=== PATIENT | female | born 1950 | race Two or more races ===

== ENCOUNTER → 2017-01-05 | Outpatient (CLI) | payer OTHER, BC | LOC: BMCIMAGING 08:51 | PROVIDERS: ATTEND Internal Medicine | DX: Z12.31 Encounter for screening mammogram for malignant neoplasm of breast (principal) | CPT/HCPCS: G0202 ==

== ENCOUNTER → 2017-04-02 | Outpatient (CLI) | payer OTHER, BC | LOC: BMCIMAGING 11:13 | PROVIDERS: ATTEND Internal Medicine | DX: R06.09 Other forms of dyspnea (principal) ==

== ENCOUNTER 2017-04-04 19:05 | Emergency (ER) | payer OTHER, BC ==
[2017-04-04] MEDS ORDERED: ASPIRIN 81 MG CHEWABLE TAB PO ONE (19:24)
[2017-04-04] MEDS ORDERED: ASPIRIN 81 MG CHEWABLE TAB ONE (19:25)
[2017-04-04] MEDS ORDERED: LORazepam 2 MG/ML INJ IVP ONE (19:36)
[2017-04-04] MEDS ORDERED: NITROGLYCERIN 0.4 MG BTL SL PRN (19:36)
--- NOTE | 2017-04-04 19:42 | EDPHY ---
H & P Stated Complaint: HTN Time Seen by Provider: 04/04/17 19:31 HPI/ROS: CHIEF COMPLAINT: Chest pain HISTORY OF PRESENT ILLNESS: The patient is a 67-year-old female who comes to the emergency department complaining of chest pain. She has had muscular pain for the last week as well as fatigue. She saw her primary Dr. Yancy Alexander who took her off of her Zocor. They are concerned about interaction between Zocor and lisinopril. This did not improve the patient's symptoms. Today she had an echocardiogram and she does not have the results. Her chest pain began yesterday and she has had occasional chills. No diaphoresis. Nausea but no vomiting. He she also noticed that her blood pressure was high today. She is concerned about this because she has a history of intracranial aneurysm. She is not on any blood thinners. She also endorses having leg cramping a few weeks ago. No traveling. REVIEW OF SYSTEMS: Constitutional: denies: chills, fever, recent illness, recent injury EENTM: denies: blurred vision, double vision, nose congestion Respiratory: denies: cough, shortness of breath Cardiac: See HPI Gastrointestinal/Abdominal: denies: abdominal pain, diarrhea, nausea, vomiting, blood streaked stools Genitourinary: denies: dysuria, frequency, hematuria, pain Musculoskeletal: denies: joint pain, muscle pain Skin: denies: lesions, rash, jaundice, bruising Neurological: denies: headache, numbness, paresthesia, tingling, dizziness, weakness Hematologic/Lymphatic: denies: blood clots, easy bleeding, easy bruising Immunologic/allergic: denies: HIV/AIDS, transplant EXAM: GENERAL: Well-appearing, well-nourished and in mild distress. HEAD: Atraumatic, normocephalic. EYES: Pupils equal round and reactive to light, extraocular movements intact, sclera anicteric, conjunctiva are normal. ENT: TMs normal, nares patent, oropharynx clear without exudates. Moist mucous membranes. NECK: Normal range of motion, supple without lymphadenopathy or JVD. LUNGS: Breath sounds clear to auscultation bilaterally and equal. No wheezes rales or rhonchi. HEART: Regular rate and rhythm without murmurs, rubs or gallops. ABDOMEN: Soft, nontender, normoactive bowel sounds. No guarding, no rebound. No masses appreciated. BACK: No CVA tenderness, no spinal tenderness, step-offs or deformities EXTREMITIES: Normal range of motion, no pitting or edema. No clubbing or cyanosis. NEUROLOGICAL: Cranial nerves II through XII grossly intact. Normal speech, normal gait. 5/5 strength, normal movement in all extremities, normal sensation PSYCH: Normal mood, normal affect. SKIN: Warm, dry, normal turgor, no visible rashes or lesions. Source: Patient Exam Limitations: No limitations - Personal History Current Tetanus/Diphtheria Vaccine: No Current Tetanus Diphtheria and Acellular Pertussis (TDAP): No - Medical/Surgical History Hx Asthma: No Hx Chronic Respiratory Disease: No Hx Diabetes: Yes Hx Cardiac Disease: No Hx Renal Disease: No Hx Cirrhosis: No Hx Alcoholism: No Hx HIV/AIDS: No Hx Splenectomy or Spleen Trauma: No Other PMH: HTN, DM, aneurysm - Social History Smoking Status: Never smoked Alcohol Use: Sober Drug Use: None Constitutional: Initial Vital Signs Temperature (C) 36.8 C 04/04/17 19:15 Heart Rate 101 H 04/04/17 19:15 Respiratory Rate 20 04/04/17 19:15 Blood Pressure 173/92 H 04/04/17 19:15 O2 Sat (%) 98 04/04/17 19:15 O2 Delivery Mode Room Air Allergies/Adverse Reactions: procaine HCl [From Novocain] Allergy (Verified 04/04/17 19:13) zylocaine Allergy (Uncoded 04/04/17 19:13) Home Medications: Medication Instructions Recorded Fenofibrate [Tricor 145 mg (RX)] 0 mg PO DAILY 02/24/13 metFORMIN HCL [Glucophage] 500 mg PO BIDMEAL 02/24/13 CO Q-10 04/04/17 Crestor 04/04/17 Fish Oil 1,200 mg Softgel 04/04/17 Lisinopril 04/04/17 VITAMIN D 04/04/17 Medical Decision Making - Diagnostics EKG Interpretation: An EKG obtained and was read and documented in trace view. Please see trace view for full reading and report. Sinus rhythm, no acute ischemic changes ED Course/Re-evaluation: 8:50 p.m. the patient is feeling much better. Recommended admission to the medical service for continued cardiac rule out. She declines and states that she wants to go home. She states that she feels better. She agree to return if her symptoms worsen or return. We discussed follow-up . Differential Diagnosis: Partial list of the Differential diagnosis considered include but were not limited to; acute coronary disease, anxiety, hypertension and although unlikely based on the history and physical exam, I also considered arrhythmia, PE, infection. I discussed these differential diagnoses and the plan with the patient as well as the usual and expected course. The patient understands that the diagnosis is provisional and that in medicine we are not always correct and that further workup is often warranted. Usual and customary warnings were given. All of the patient's questions were answered. The patient was instructed to return to the emergency department should the symptoms at all worsen or return, otherwise to followup with the physician as we discussed. - Data Points Laboratory Results: Laboratory Results 04/04/17 19:48 04/04/17 19:48 Medications Given: Discontinued Medications Aspirin (Aspirin) 324 mg PO EDNOW ONE Stop: 04/04/17 19:25 Last Admin: 04/04/17 19:43 Dose: 324 mg Ketorolac Tromethamine (Toradol) 15 mg IVP EDNOW ONE Stop: 04/04/17 20:33 Last Admin: 04/04/17 20:37 Dose: 15 mg Lorazepam (Ativan Injection) 0.5 mg IVP EDNOW ONE Stop: 04/04/17 19:37 Last Admin: 04/04/17 19:49 Dose: 0.5 mg Morphine Sulfate (Morphine) 4 mg IVP EDNOW ONE Stop: 04/04/17 19:38 Last Admin: 04/04/17 20:05 Dose: Not Given Departure - Departure Disposition: Home, Routine, Self-Care Clinical Impression: Chest pain Qualifiers: Chest pain type: unspecified Qualified Code(s): R07.9 - Chest pain, unspecified Hypertension Qualifiers: Hypertension type: unspecified Qualified Code(s): I10 - Essential (primary) hypertension Condition: Fair Instructions: Chest Pain (ED), Hypertension (ED) Referrals: Yancy Alexander MD [Primary Care Provider] - As per Instructions
--- NOTE | 2017-04-04 19:55 | CPEKG ---
Heart Rate: 93 RR Interval: 645 P-R Interval: 144 QRSD Interval: 76 QT Interval: 388 QTC Interval: 483 P [place]: 49 QRS [place]: 80 T Wave [place]: 45 EKG Severity - BORDERLINE ECG - EKG Impression: SINUS RHYTHM EKG Impression: BORDERLINE T ABNORMALITIES, ANTERIOR LEADS Electronically Signed By: Tico Jimenez 04-Apr-2017 20:38:49
[2017-04-04 20:04] LABS: % IMMATURE GRANULYOCYTES 0.4 % (0.0-1.1); ABSOLUTE IMMATURE GRANULOCYTES 0.05 10^3/uL (0.00-0.10); ADD DIFF? NO; ADD MORPH? NO; ADD SCAN? NO; ATYPICAL LYMPHOCYTE FLAG 0 (0-99); FRAGMENT RBC FLAG 0 (0-99); HEMATOCRIT 43.1 % (38.0-47.0); HEMOGLOBIN 14.7 g/dL (12.6-16.3); LEFT SHIFT FLG 0 (0-99); LIPEMIA HEMOLYSIS FLAG 90 (0-99); MEAN CELL HEMOGLOBIN 30.6 pg (27.9-34.1); MEAN CELL HEMOGLOBIN CONCENTR. 34.1 g/dL (32.4-36.7); MEAN CELL VOLUME 89.8 fL (81.5-99.8); MEAN PLATELET VOLUME 9.6 fL (8.7-11.7); PLATELET CLUMPS FLAG 0 (0-99); PLATELET COUNT 209 10^3/uL (150-400); RED CELL DISTRIBUTION WIDTH 13.6 % (11.5-15.2)
[2017-04-04 20:15] LABS: ALANINE AMINOTRANSFERASE 50 IU/L (9-52); ALBUMIN 4.5 g/dL (3.5-5.0); ALKALINE PHOSPHATASE 70 IU/L (38-126); ANION GAP 13 mEq/L (8-16); ASPARTATE AMINOTRANSFERASE 28 IU/L (14-46); BILIRUBIN,TOTAL 0.6 mg/dL (0.1-1.4); BILIRUBIN-CONJUGATED 0.3 mg/dL (0.0-0.5); BILIRUBIN-UNCONJUGATED 0.3 mg/dL (0.0-1.1); CARBON DIOXIDE 22 mEq/l (22-31); CHLORIDE 103 mEq/L (97-110); CREATININE 0.7 mg/dL (0.6-1.0); GLOMERULAR FILTRATION RATE > 60; GLUCOSE 121 mg/dL (70-100); POTASSIUM 4.1 mEq/L (3.5-5.2); SODIUM 138 mEq/L (134-144); TOTAL PROTEIN 8.1 g/dL (6.3-8.2)
[2017-04-04 20:24] LABS: INR 1.01 (0.83-1.16); PROTIME(PATIENT) 13.2 SEC (12.0-15.0)
[2017-04-04 20:25] LABS: APTT 24.9 SEC (23.0-38.0); TROPONIN I < 0.012 ng/mL (0.000-0.034)
[2017-04-04] MEDS ORDERED: KETOROLAC 15 MG/1 ML SDV IVP ONE (20:32)
[2017-04-04 21:16] VITALS: BP 135/80; PULSE 87; RESP 16; TEMP 97.9; O2SAT 92
== END 2017-04-04 21:15 | disposition home or self-care (01) ==
DX: R07.9 Chest pain, unspecified (principal); I10 Essential (primary) hypertension; E11.9 Type 2 diabetes mellitus without complications; Z79.01 Long term (current) use of anticoagulants
CPT/HCPCS: 71020; 93005; 96374; 96375; 99285; J1885; J2060

== ENCOUNTER → 2017-05-04 | Outpatient (CLI) | payer OTHER, BC ==
[~2017-05-04] MED LIST: IOPAMIDOL (ISOVUE 370) 100 ML BTL IV ONE
== END ==
LOC: FIMAGING 11:32
PROVIDERS: ATTEND Internal Medicine
DX: I67.1 Cerebral aneurysm, nonruptured (principal)
CPT/HCPCS: 70450; 70496; Q9967

== ENCOUNTER → 2017-05-07 | Outpatient (CLI) | payer OTHER, BC | LOC: BMCIMAGING 11:29 | PROVIDERS: ATTEND Internal Medicine | DX: M06.811 Other specified rheumatoid arthritis, right shoulder (principal); M25.712 Osteophyte, left shoulder ==

== ENCOUNTER 2017-05-24 09:41 | Day surgery (SDC) | payer OTHER, BC ==
[2017-05-24] MEDS ORDERED: FAMOTIDINE 20 MG TAB PO ONE (09:46)
[2017-05-24] MEDS ORDERED: ASPIRIN EC 325 MG TAB PO ONE (09:46)
[2017-05-24] MEDS ORDERED: NS 1,000 ML IV ONE (09:46)
[2017-05-24] MEDS ORDERED: diphenhydrAMINE 25 MG CAP PO ONE (09:46)
[2017-05-24] MEDS ORDERED: DIAZEPAM 5 MG TAB PO ONE (09:46)
--- NOTE | 2017-05-24 10:06 | CPEKG ---
Heart Rate: 75 RR Interval: 800 P-R Interval: 148 QRSD Interval: 74 QT Interval: 428 QTC Interval: 479 P Fred: 57 QRS Fred: 76 T Wave Fred: 63 EKG Severity - BORDERLINE ECG - EKG Impression: SINUS RHYTHM EKG Impression: BORDERLINE T ABNORMALITIES, ANT-LAT LEADS Electronically Signed By: Thai Mayorga 24-May-2017 17:36:13
[2017-05-24 10:18] LABS: % IMMATURE GRANULYOCYTES 0.2 % (0.0-1.1); ABSOLUTE IMMATURE GRANULOCYTES 0.01 10^3/uL (0.00-0.10); ADD DIFF? NO; ADD MORPH? NO; ADD SCAN? NO; ATYPICAL LYMPHOCYTE FLAG 10 (0-99); FRAGMENT RBC FLAG 0 (0-99); HEMATOCRIT 41.3 % (38.0-47.0); HEMOGLOBIN 14.1 g/dL (12.6-16.3); LEFT SHIFT FLG 0 (0-99); LIPEMIA HEMOLYSIS FLAG 90 (0-99); MEAN CELL HEMOGLOBIN 30.9 pg (27.9-34.1); MEAN CELL HEMOGLOBIN CONCENTR. 34.1 g/dL (32.4-36.7); MEAN CELL VOLUME 90.4 fL (81.5-99.8); MEAN PLATELET VOLUME 9.5 fL (8.7-11.7); PLATELET CLUMPS FLAG 10 (0-99); PLATELET COUNT 184 10^3/uL (150-400); RED BLOOD CELL COUNT 4.57 10^6/uL (4.18-5.33); RED CELL DISTRIBUTION WIDTH 13.9 % (11.5-15.2)
[2017-05-24 10:29] LABS: INR 1.05 (0.83-1.16); PROTIME(PATIENT) 13.6 SEC (12.0-15.0)
[2017-05-24 10:38] LABS: ANION GAP 12 mEq/L (8-16); CALCIUM 9.2 mg/dL (8.5-10.4); CARBON DIOXIDE 24 mEq/l (22-31); CHLORIDE 108 mEq/L (97-110); CHOLESTEROL 166 mg/dL (140-220); CHOLESTEROL/HDL RATIO 4.74 RATIO (1.00-4.44); CREATININE 0.8 mg/dL (0.6-1.0); GLOMERULAR FILTRATION RATE > 60; GLUCOSE 108 mg/dL (70-100); HIGH DENSITY LIPOPROTEIN 35 mg/dL (40-85); LOW DENSITY LIPOPROTEIN 84 mg/dL (80-100); MAGNESIUM 2.1 mg/dL (1.6-2.3); NON-HIGH DENSITY LIPOPROTEIN 131 mg/dL (90-129); POTASSIUM 3.9 mEq/L (3.5-5.2); SODIUM 144 mEq/L (134-144); TRIGLYCERIDE 236 mg/dL (35-135); VERY LOW DENSITY LIPOPROTEINS 47 mg/dL (8-25)
[2017-05-24] MEDS ORDERED: IOPAMIDOL (ISOVUE-370) 150 ML BTL IV ONE (12:55)
[2017-05-24] MEDS ORDERED: fentaNYL 100 MCG/2 ML INJ ONE ×3 (12:55→14:11)
[2017-05-24] MEDS ORDERED: MIDAZOLAM 2 MG/2 ML VIAL ONE ×2 (12:56→13:23)
--- NOTE | 2017-05-24 13:24 | PDGENHP ---
History & Physical History of Present Illness: 67 year old female with exertional chest pain, 5/10 radiating to the scapula lasting 5 minutes after rest. CP on ETT with ecg changes . Hx of DM, HLP, Hypertriglyceridemia, HTN and cad on calcium score Relevant Physical Exam: Awake, alert appropriate.
--- NOTE | 2017-05-24 13:24 | PDPROPOC ---
Sedation Plan of Care Sedation Plan of Care: vital signs stable, mental status noted, patient educated of risks, benefits, alternatives, patient can tolerate sedation ASA Classification: ASA 2 Planned drugs: fentanyl, midazolam Mallampati Score: Class 2 Mallampati Reference Image: Patient passed 3-3-2 rule?: Yes
[2017-05-24] MEDS ORDERED: ATROPINE SULFATE 1 MG/10 ML SYR IVP PRN (14:36)
[2017-05-24] MEDS ORDERED: HYDROCODONE/APAP 5/325 TAB PO PRN (14:36)
[2017-05-24] MEDS ORDERED: OXYCODONE/APAP 5/325 TAB PO PRN (14:36)
[2017-05-24] MEDS ORDERED: NITROGLYCERIN 0.4 MG BTL SL PRN (14:36)
[2017-05-24] MEDS ORDERED: ONDANSETRON 4 MG/2 ML VIAL IVP PRN (14:36)
--- NOTE | 2017-05-24 19:17 | GPN ---
[f rep st] PROCEDURE NOTE DATE OF PROCEDURE: 05/24/2017 PROCEDURE PERFORMED: Diagnostic left heart catheterization. INDICATION FOR PROCEDURE: High-risk findings on exercise treadmill stress test. The patient develop ed 5/10, substernal chest pain radiating to the mid scapula coupled with ECG changes in the setting o f multiple coronary artery disease risk factors including hypertension, hyperlipidemia, hypertriglyce ridemia as well as evident diabetes and positive coronary calcium score. PROCEDURE: After informed consent was obtained the patient was brought to the cardiac catheterizatio n lab where she was prepped and draped in the sterile fashion. Using no lidocaine secondary to her h istory of allergies to lidocaine and other topical numbing agents, she underwent sedation with fentan yl and versed. Once appropriate level of sedation was achieved, the right common femoral artery was cannulated via the modified Seldinger technique with a 6-[place] catheter. A JL4 catheter was used to take images of the left coronary anatomy. JL4 catheter was exchanged over a guidewire for a JR4 cat heter. JR4 catheter was used to cannulate the right coronary artery. JR4 catheter was unsuccessfull y able to cannulate the right coronary artery. This was exchanged for a [place] right catheter. A [place] right catheter was used to successfully cannulate the right coronary artery. Images of the right coronary anatomy were obtained in multiple projections. [place] right catheter was exchanged over a guidewire for angled pigtail catheter. Angled pigtail c atheter was used to cross the aortic valve. Left ventriculogram was performed. LVEDP was assessed. Aortic valve gradient was assessed. Angled pigtail catheter was removed over a guidewire without co mplications. Angiography of the right common femoral artery demonstrated appropriate placement of th e 6-[place] catheter above the bifurcation and below the inguinal ligament. The patient underwent suc cessful closure device. FINDINGS: 1. Left main normal size and caliber. Bifurcates into left anterior descending and left circumflex coronary artery. There is no evidence of coronary artery disease within the left main. 2. Left anterior descending artery wraps around the LV apex. There is no evidence of coronary arter y disease within the LAD or its branches. 3. Circumflex vessel is a nondominant vessel. There was a 40% to 50% stenosis at the bifurcation of the first obtuse marginal branch. Some mild luminal irregularities within the distal circumflex ves mitchel. 4. Right coronary artery was a dominant vessel with a large PDA and PLV branch. There is no evidenc e of coronary artery disease within the right coronary artery. HEMODYNAMICS: LVEF 60% to 65%. LVEDP 21 mmHg. Aortic valve gradient: None. CONCLUSION: 1. Moderate nonobstructive coronary artery disease in the circumflex vessel at the bifurcation of th e first obtuse marginal branch. 2. No other significant coronary artery disease. 3. Normal LV function with LVEF of 60% to 65%. LVEDP 21 mmHg. PLAN: [employer] therapy. /[id number]/MODL
== END 2017-05-24 18:21 | disposition home or self-care (01) ==
LOC: FCATH 09:41
PROVIDERS: ATTEND Internal Medicine Cardiovascular Disease
DX: I25.10 Atherosclerotic heart disease of native coronary artery without angina pectoris (principal); E78.5 Hyperlipidemia, unspecified; I10 Essential (primary) hypertension; E78.1 Pure hyperglyceridemia; E11.9 Type 2 diabetes mellitus without complications; Z78.0 Asymptomatic menopausal state
CPT/HCPCS: C1760; J1644; J2250; J3010; Q9967

== ENCOUNTER → 2018-01-11 | Outpatient (CLI) | payer OTHER, BC | LOC: BMCIMAGING 08:11 | PROVIDERS: ATTEND Internal Medicine | DX: Z12.31 Encounter for screening mammogram for malignant neoplasm of breast (principal) ==

== ENCOUNTER → 2018-04-11 | Outpatient (CLI) | payer OTHER, BC | LOC: FIMAGING 08:36 | PROVIDERS: ATTEND Nurse Practitioner | DX: I67.1 Cerebral aneurysm, nonruptured (principal) | CPT/HCPCS: 70496; Q9967; 82565-PO ==

== ENCOUNTER → 2018-05-15 | Outpatient (CLI) | payer OTHER, BC | LOC: FIMAGING 07:41 | PROVIDERS: ATTEND Internal Medicine | DX: R14.0 Abdominal distension (gaseous) (principal); K76.0 Fatty (change of) liver, not elsewhere classified; K76.89 Other specified diseases of liver ==

== ENCOUNTER → 2018-05-29 | Outpatient (CLI) | payer OTHER, BC ==
[~2018-05-29] MED LIST changes: -IOPAMIDOL (ISOVUE 370) 100 ML BTL IV ONE; +IOPAMIDOL (ISOVUE-300) 100 ML BTL ONE
== END ==
LOC: FIMAGING 09:39
PROVIDERS: ATTEND Internal Medicine
DX: K76.9 Liver disease, unspecified (principal); R14.0 Abdominal distension (gaseous); E28.39 Other primary ovarian failure; Z13.820 Encounter for screening for osteoporosis; M85.80 Other specified disorders of bone density and structure, unspecified site; K57.30 Diverticulosis of large intestine without perforation or abscess without bleeding; I70.0 Atherosclerosis of aorta
CPT/HCPCS: 74177; 77080; Q9967; 82565-PO

== ENCOUNTER → 2018-09-27 | Outpatient (CLI) | payer OTHER, BC | LOC: FIMAGING 09:51 | PROVIDERS: ATTEND Otolaryngology | DX: H92.01 Otalgia, right ear (principal); R59.0 Localized enlarged lymph nodes ==

== ENCOUNTER → 2018-09-27 | Outpatient (CLI) | payer OTHER, BC | LOC: BMCIMAGING 10:47 | PROVIDERS: ATTEND Internal Medicine | DX: M19.011 Primary osteoarthritis, right shoulder (principal); M19.012 Primary osteoarthritis, left shoulder; M17.11 Unilateral primary osteoarthritis, right knee ==

== ENCOUNTER → 2018-10-04 | Outpatient (CLI) | payer OTHER, BC | LOC: BMCIMAGING 13:56 | PROVIDERS: ATTEND Physician Assistant | DX: M50.30 Other cervical disc degeneration, unspecified cervical region (principal) ==

== ENCOUNTER → 2019-01-13 | Outpatient (CLI) | payer OTHER, BC | LOC: BMCIMAGING 08:51 ==